=== PATIENT | female | born 1945 | race Caucasian/White ===

== ENCOUNTER 2018-10-15 11:05 | Outpatient (CLI) | payer MEDICARE ==
--- NOTE | 2018-10-18 08:51 | Mammography Report ---
Reason: ENCOUNTER FOR SCREENING MAMMOGRAM FOR MALIGNANT NE Procedure Date: 10/15/2018 Accession Number: [id number] / [id number] Procedure: LACEY - Screening Mammo w/Konstantin CPT Code: FULL RESULT: EXAM: Screening Mammo w/Konstantin DATE: 10/15/2018 11:42 AM CLINICAL HISTORY: Screening encounter. No reported risk factors. TECHNIQUE: Bilateral CC and MLO views were obtained. COMPARISON: 01/28/2011. FINDINGS: The breasts demonstrate diffuse fatty replacement bilaterally. Typically benign vascular calcifications are identified bilaterally. No suspicious masses, clustered microcalcifications, or regions of architectural distortion are identified. IMPRESSION: Benign findings RECOMMENDATION: Routine annual screening unless otherwise clinically indicated. BIRADS CATEGORY 2: Benign findings STANDARD QUALIFYING STATEMENTS: 1. This examination was not reviewed with the aid of Computer-Aided Detection (CAD). 2. A negative or benign imaging report should not preclude biopsy if clinically suspicious findings are present. 3. Dense breasts may obscure an underlying neoplasm. 4. This examination was reviewed with the aid of 3D breast imaging (tomosynthesis).
== END 2018-10-15 11:06 | disposition home or self-care (01) ==
LOC: DI 11:05
PROVIDERS: ATTEND Registered Nurse
DX: Z12.31 Encounter for screening mammogram for malignant neoplasm of breast (principal)
CPT/HCPCS: 77063; 77067

== ENCOUNTER 2019-04-07 09:12 | Outpatient (CLI) | payer MEDICARE ==
--- NOTE | 2019-04-07 11:01 | MRI Report ---
Reason: MILD COGNITIVE IMPAIRMENT,SO STATED, DISORIENTATIO Procedure Date: 04/07/2019 Accession Number: [id number] / [id number] Procedure: MRI - Brain W/O CPT Code: FULL RESULT: EXAM: MRI BRAIN WITHOUT CONTRAST EXAM DATE: 04/07/2019 10:51 AM. CLINICAL HISTORY: MILD COGNITIVE IMPAIRMENT,SO STATED, DISORIENTATION. COMPARISON: None. TECHNIQUE: Multiplanar, multisequence T1-weighted and fluid-sensitive MR sequences of the brain were performed. Sequences optimized for routine evaluation. Other: None. IV Contrast: None. Without contrast. FINDINGS: Diffusion weighted sequence shows no evidence for acute infarct. There is no mass, mass effect, midline shift or abnormal extraaxial fluid collection. Size and configuration of the ventricles are normal. Few scattered T2 hyperintensities are seen in the periventricular white matter largest in the right parietal lobe measures 6 x 9 mm. There is mild diffuse cerebral volume loss. Brainstem and cerebellum appear normal. Major intracranial flow voids appear normal. Globes, orbits, optic nerve sheath complex, optic chiasm, pituitary, cavernous sinus and Meckel's cave appear normal. Paranasal sinuses and mastoid air cells appear well aerated. Marrow signal and extracranial soft tissue appear normal. Craniocervical junction and visualized upper cervical cord appear unremarkable. IMPRESSION: 1. No acute infarct, intracranial hemorrhage, midline shift or hydrocephalus. 2. Mild diffuse nonfocal volume loss. 3. Trace scattered nonspecific white matter T2 hyperintensities bilaterally, minimal microangiopathy. Findings within normal limits given age. RADIA
== END 2019-04-07 09:13 | disposition home or self-care (01) ==
LOC: DI 09:12
PROVIDERS: ATTEND Registered Nurse
DX: G31.84 Mild cognitive impairment of uncertain or unknown etiology (principal); R41.0 Disorientation, unspecified
CPT/HCPCS: 70551

== ENCOUNTER 2021-12-13 08:48 | Outpatient (CLI) | payer MEDICARE, BC | END 2021-12-13 23:59 | disposition critical access hospital (66) | LOC: EMS 08:48 | DX: R55 Syncope and collapse (principal) | CPT/HCPCS: A0425; A0427 ==

== ENCOUNTER 2021-12-13 09:14 | Inpatient (IN) | payer MEDICARE, BC ==
--- NOTE | 2021-12-13 09:52 | ED Physician Documentation ---
History of Present Illness - Stated complaint Stated Complaint: SYNCOPAL EPISODE - Chief complaint Chief Complaint: Neuro - History obtained from History obtained from: Patient, EMS - Additonal information Additional information: 75-year-old woman with history of diabetes, recent diagnosis of dementia and looking at the chart also has hypertension and hypercholesterolemia although she is not specifically aware of these diagnoses. Some of the information from the patient is questionable as she is a poor historian due to cognitive deficits. Reportedly was feeling lightheaded for about 45 seconds, per report though was longer as she was waiting on the stairs for her daughter to pick her up. Now she feels fine. There is no associated chest pain, trouble breathing, or headache. There was no syncope. 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 - Present Medications Home Medications: Ambulatory Orders Medication Instructions Recorded Confirmed Amlodipine Besylate 5 mg PO DAILY 01/02/15 12/13/21 Glipizide [Glipizide Xl] 5 mg PO BID 01/02/15 12/13/21 Isosorbide Dinitrate 5 mg PO BID 01/02/15 12/13/21 Levocetirizine Dihydrochloride 5 mg PO QPM 01/02/15 12/13/21 Levothyroxine Sodium [Levoxyl] 125 mcg PO DAILY 01/02/15 12/13/21 Metformin HCl 500 mg PO QID 01/02/15 12/13/21 Pantoprazole [Protonix] 40 mg PO QPM 01/02/15 12/13/21 Rosuvastatin Calcium [Crestor] 10 mg PO DAILY 01/02/15 12/13/21 Triamterene/Hydrochlorothiazid 1 each PO DAILY 01/02/15 12/13/21 [Triamterene-Hctz 37.5-25 mg Cp] lisinopriL [Lisinopril] 5 mg PO QPM 01/02/15 12/13/21 - Allergies Allergies/Adverse Reactions: Allergies Allergy/AdvReac Type Severity Reaction Status Date / Time No Known Drug Allergies Allergy Verified 12/13/21 09:33 - Social History Does the pt smoke?: No Smoking Status: Never smoker Does the pt drink ETOH?: No Does the pt have substance abuse?: No - Immunizations Immunizations are current?: Yes - POLST Patient has POLST: No PD ED PE NORMAL - Vitals Vital signs reviewed: Yes - General General: No acute distress, Well developed/nourished, Other (Alert and oriented to person and place, some issues with short-term memory but is able to give a history of what happened this morning.) - HEENT HEENT: PERRL, EOMI - Neck Neck: Supple, no meningeal sign, No bony TTP - Cardiac Cardiac: RRR, No murmur - Respiratory Respiratory: No respiratory distress, Clear bilaterally - Abdomen Abdomen: Non tender - Rectal Rectal: Other (done with Sarah DURAN, dark, firm stool, not melenic but dark) - Back Back: No CVA TTP, No spinal TTP - Derm Derm: Normal color, Warm and dry - Extremities Extremities: No edema, No calf tenderness / cord - Neuro 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, No motor deficit, No sensory deficit, Normal speech Eye Opening: Spontaneous Motor: Obeys Commands Verbal: Oriented GCS Score: 15 Results - Vitals Vitals: Vital Signs - 24 hr 12/13/21 12/13/21 12/13/21 09:24 09:57 09:58 Temperature 36.1 C L Heart Rate 106 H Heart Rate [ 89 Sitting] Heart Rate [ 117 H Standing] Heart Rate [ 88 Supine] Respiratory 16 Rate Blood Pressure 112/51 L Blood Pressure 97/50 L [Sitting] Blood Pressure 91/50 L [Standing] Blood Pressure 90/50 L [Supine] O2 Saturation 100 12/13/21 11:44 Temperature Heart Rate 94 Heart Rate [ Sitting] Heart Rate [ Standing] Heart Rate [ Supine] Respiratory Rate Blood Pressure 98/50 L Blood Pressure [Sitting] Blood Pressure [Standing] Blood Pressure [Supine] O2 Saturation Oxygen O2 Source Room air - EKG (time done) 0915 Rate: Rate (enter#) (92) Rhythm: NSR [place]: Normal Intervals: Normal OK QRS: Normal Ischemia: Normal ST segments - Labs Labs: Microbiology 12/13/21 10:50 Occult Blood - Final Stool Laboratory Tests 12/13/21 12/13/21 12/13/21 09:48 09:48 09:48 WBC 11.7 H RBC 2.29 L Hgb 5.8 L* Hct 19.5 L* MCV 85.2 MCH 25.3 L MCHC 29.7 L RDW 17.7 H Plt Count 490 H MPV 9.9 Neut # (Auto) 8.7 H Lymph # (Auto) 2.0 [place] # (Auto) 0.7 Eos # (Auto) 0.2 Baso # (Auto) 0.1 Absolute Nucleated RBC 0.00 Nucleated RBC % 0.0 Sodium 134 L Potassium 4.0 Chloride 98 L Carbon Dioxide 24 Anion Gap 12.0 BUN 36 H Creatinine 1.8 H Estimated GFR (MDRD) 28 L Glucose 145 H Calcium 8.7 Iron TIBC % Saturation Transferrin Total Bilirubin 0.4 AST 16 ALT 12 Alkaline Phosphatase 50 Troponin I High Sens 4.1 Total Protein 6.6 L Albumin 3.7 Globulin 2.9 Albumin/Globulin Ratio 1.3 Blood Type Antibody Screen Crossmatch IS Only 12/13/21 12/13/21 12/13/21 09:48 10:22 10:22 WBC 11.0 H RBC 2.31 L Hgb 5.8 L* Hct 19.5 L* MCV 84.4 MCH 25.1 L MCHC 29.7 L RDW 17.5 H Plt Count 527 H MPV 9.6 Neut # (Auto) 8.5 H Lymph # (Auto) 1.8 [place] # (Auto) 0.6 Eos # (Auto) 0.1 Baso # (Auto) 0.1 Absolute Nucleated RBC 0.00 Nucleated RBC % 0.0 Sodium Potassium Chloride Carbon Dioxide Anion Gap BUN Creatinine Estimated GFR (MDRD) Glucose Calcium Iron 8 L TIBC 427 % Saturation 2 L Transferrin 305 Total Bilirubin AST ALT Alkaline Phosphatase Troponin I High Sens Total Protein Albumin Globulin Albumin/Globulin Ratio Blood Type O NEGATIVE Antibody Screen NEGATIVE Crossmatch IS Only See Detail PD MEDICAL DECISION MAKING - ED course ED course: 75-year-old woman presents after presyncopal episode. Fairly benign exam but with some low blood pressures including 90/50 here with modest tachycardia in the 110s and 1 teens. She was found to have a very low hemoglobin at 5.8, the c hronicity is unclear but at least 6 years ago had a normal hemoglobin at 12.3. She is guaiac negative here. Given the acute kidney injury with GFR of less than 50% of her prior and worried for hemodynamic instability per MCG guidelines does fit criteria for inpatient care and Dr. Barragan accepts at 11:30 AM. Departure - Departure Disposition: [facility] DC/Xfer Clinical Impression: Pre-syncope Hypotension Qualifiers: Hypotension type: unspecified hypotension type Qualified Code(s): I95.9 - Hypotension, unspecified Profound anemia Qualifiers: Anemia type: unspecified type Qualified Code(s): D64.9 - Anemia, unspecified Condition: Serious Discharge Date/Time: 12/13/21 12:50
[2021-12-13 09:53] LABS: BASOPHILS # (AUTO) 0.1 10^3/uL (0.0-0.1); BASOPHILS % (AUTO) 0.8 %; EOSINOPHILS # (AUTO) 0.2 10^3/uL (0.0-0.7); EOSINOPHILS % (AUTO) 1.4 %; LYMPHOCYTES % (AUTO) 17.2 %; MEAN CORPUSCULAR HEMOGLOBIN 25.3 pg (27.0-31.0); MEAN CORPUSCULAR HGB CONC 29.7 g/dL (32.0-36.0); MEAN CORPUSCULAR VOLUME 85.2 fL (81.0-99.0); MEAN PLATELET VOLUME 9.9 fL (7.9-10.8); MONOCYTES # (AUTO) 0.7 10^3/uL (0.0-1.0); MONOCYTES % (AUTO) 6.1 %; NEUTROPHILS # (AUTO) 8.7 10^3/uL (1.5-6.6); NEUTROPHILS % (AUTO) 74.2 %; PLT - PLATELET COUNT 490 10^3/uL (130-450); RED BLOOD COUNT 2.29 10^6/uL (4.20-5.40); RED CELL DISTRIBUTION WIDTH 17.7 % (12.0-15.0); WHITE BLOOD COUNT 11.7 x10^3/uL (4.8-10.8)
[2021-12-13 09:59] LABS: HCT - HEMATOCRIT 19.5 % (37.0-47.0); HGB - HEMOGLOBIN 5.8 g/dL (12.0-16.0)
[2021-12-13 10:06] LABS: ALBUMIN 3.7 g/dL (3.2-5.5); ALBUMIN/GLOBULIN RATIO 1.3 (1.0-2.2); BILIRUBIN,TOTAL 0.4 mg/dL (0.2-1.0); CALCIUM 8.7 mg/dL (8.5-10.3); CREATININE 1.8 mg/dL (0.4-1.0); TOTAL PROTEIN 6.6 g/dL (6.7-8.2)
[2021-12-13 10:29] LABS: BASOPHILS # (AUTO) 0.1 10^3/uL (0.0-0.1); BASOPHILS % (AUTO) 0.6 %; EOSINOPHILS # (AUTO) 0.1 10^3/uL (0.0-0.7); EOSINOPHILS % (AUTO) 0.8 %; LYMPHOCYTES # (AUTO) 1.8 10^3/uL (1.5-3.5); LYMPHOCYTES % (AUTO) 15.9 %; MEAN CORPUSCULAR HEMOGLOBIN 25.1 pg (27.0-31.0); MEAN CORPUSCULAR HGB CONC 29.7 g/dL (32.0-36.0); MEAN CORPUSCULAR VOLUME 84.4 fL (81.0-99.0); MEAN PLATELET VOLUME 9.6 fL (7.9-10.8); MONOCYTES # (AUTO) 0.6 10^3/uL (0.0-1.0); NEUTROPHILS # (AUTO) 8.5 10^3/uL (1.5-6.6); NEUTROPHILS % (AUTO) 77.3 %; PLT - PLATELET COUNT 527 10^3/uL (130-450); RED BLOOD COUNT 2.31 10^6/uL (4.20-5.40); RED CELL DISTRIBUTION WIDTH 17.5 % (12.0-15.0)
[2021-12-13 10:34] LABS: HCT - HEMATOCRIT 19.5 % (37.0-47.0); HGB - HEMOGLOBIN 5.8 g/dL (12.0-16.0)
[2021-12-13] MEDS ORDERED: ONDANSETRON 4 MG/2 ML VIAL IVP PRN (11:52)
[2021-12-13] MEDS ORDERED: ACETAMINOPHEN 325 MG TABLET PO PRN (11:52)
[2021-12-13] MEDS ORDERED: SODIUM CHLORIDE FLUSH 0.9% 10 ML SYRINGE IVP PRN (11:52)
[2021-12-13 12:25] LABS: % IRON SATURATION 2 % (20-50); IRON 8 ug/dL (28-170); TOTAL IRON BINDING CAPACITY 427 ug/dL (250-450); TRANSFERRIN 305 mg/dL (192-382)
--- NOTE | 2021-12-13 13:05 | HISTORY & PHYSICAL EXAMINATION ---
Chief Complaint - Chief Complaint Chief Complaint: Dizziness and near syncope <Sherry Tate - Last Filed: 12/13/21 18:55> History of Present Illness - Admitted From Admitted From:: [facility] ED - History Obtained From History obtained from: Patient and Medical Records Exam Limitations: Patient if forgetful <Sherry Tate - Last Filed: 12/13/21 18:55> - History of Present Illness HPI Comment/Other: The patient is a pleasant well nourished 75 year old female with a history of hypertension, hyperlipidemia, diabetes, and hypothyroidism. She presents to the hospital ED from home after near syncope. She reports being home alone standing on the stairs and began to feel dizzy. She felt that she was going to lose her balance so sat down on the stairs. She denies losing consciences, falling, or injury. She then proceeded to call her daughter, Stephanie who called paramedics. She reports a similar episode of dizziness several years ago but denies having a medial work up. During initial work up she was found to be severely anemic with Hgb & Hct 5.8/19.5 and was orthostatic heart rate ranged 88 supine to 117 standing and blood pressure was 90s/50. Patient denies dizziness with recent activity. She reports normal bowel color, consistency, with last bowel movement 12/12/21. She d enies recent abdominal pain, vomiting, or bloody/ black stools. No recent illness or infection. She denies any recent trauma. Daughter Stephanie was contacted who reported that she was with patient during near syncopal episode. She had picked her up from her apartment on the second story and as they were walking down the stairs she reported feeling dizzy and hot so she abruptly sat down. She was then lethargic with some facial twitching that continued until paramedics arrived. When she tried to stand up, she began to feel dizzy again and was orthostatic. Daughter reports patient has been complai zulema of increased weakness, fatigue, and dyspepsia over 2 weeks. 3 weeks prior to admission patient was having diarrhea for a 2 week period that kept her from leaving the apartment. It has resolved 1 week ago. The patient is now complaining of constipation but reported a bowel movement yesterday. She did have an esophogeal bleed in 2006 that was managed without intervention. Daughter does not recall patient complaining of chest pain recently or in the past and in unsure why she takes Isosorbide. She does not know of any cardiac conditions other than hypertension. Daughter confirmed that patient is still driving but has plans to move to [facility] in 2 weeks. Code status was discussed with the daughter and she confirmed that patient would like full resuscitation. 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 - Substance History Use: Uses substance without health or social issues: NONE Abuse: Recurrent use of substance despite neg consequences: NONE Dependence: Experiences withdrawal or developed tolerances: NONE - POLST Patient has POLST: No POLST Status: Full Code (Confirmed with daughter, Stephanie) <Sherry Tate - Last Filed: 12/13/21 18:55> Meds/Allgy <Shrery Tate - Last Filed: 12/13/21 18:55> <Darling Barragan - Last Filed: 12/13/21 19:32> - Home Medications Home Medications: Ambulatory Orders Medication Instructions Recorded Confirmed Amlodipine Besylate 5 mg PO DAILY 01/02/15 12/13/21 Glipizide [Glipizide Xl] 5 mg PO BID 01/02/15 12/13/21 Isosorbide Dinitrate 5 mg PO BID 01/02/15 12/13/21 Levocetirizine Dihydrochloride 5 mg PO QPM 01/02/15 12/13/21 Levothyroxine Sodium [Levoxyl] 125 mcg PO DAILY 01/02/15 12/13/21 Metformin HCl 500 mg PO QID 01/02/15 12/13/21 Pantoprazole [Protonix] 40 mg PO QPM 01/02/15 12/13/21 Rosuvastatin Calcium [Crestor] 10 mg PO DAILY 01/02/15 12/13/21 Triamterene/Hydrochlorothiazid 1 each PO DAILY 01/02/15 12/13/21 [Triamterene-Hctz 37.5-25 mg Cp] lisinopriL [Lisinopril] 5 mg PO QPM 01/02/15 12/13/21 - Allergies Allergies/Adverse Reactions: Allergies Allergy/AdvReac Type Severity Reaction Status Date / Time No Known Drug Allergies Allergy Verified 12/13/21 09:33 Review of Systems - Constitutional Constitutional: reports: Fatigue, Weakness. denies: Fever, Chills, Malaise - Eyes Eyes: denies: Pain, Irritation, Blurred vision - Ears, Nose & Throat Ears, Nose & Throat: reports: Hearing loss, Hearing aids. denies: Tinnitus, Vertigo, Nasal discharge, Nasal congestion - Cardiovascular Cariovascular: reports: Lightheadedness. denies: Irregular heart rate, Palpitations, Chest pain, Edema - Respiratory Respiratory: denies: Cough, Sputum production, Wheezing, Hemoptysis - Gastrointestinal Gastrointestinal: reports: Constipation (Intermittent), Change in bowel habits (Diarrhea for 2 weeks then 1 week of constipation. Last BM 12/12/21). denies: Abdominal pain, Diarrhea, Rectal bleeding, Black stools, Bloody stools, Nausea, Vomiting, Hiren blood emesis, Coffee grounds emesis - Genitourinary Genitourinary: denies: Dysuria, Frequency, Urgency, Hematuria - Musculoskeletal Musculoskeletal: denies: Muscle pain, Joint swelling - Integumentary Integumentary: denies: Rash, Lesions, Pigment changes - Neurological Neurological: reports: General weakness, Dizziness. denies: Headache, Numbness - Psychiatric Psychiatric: denies: Depression, Anxiety - Endocrine Endocrine: denies: Polyuria, Polydypsia, Intolerance to cold, Intolerance to heat - Hematologic/Lymphatic Hematologic/Lymphatic: denies: Anemia, Bruising, Petechiae <Sherry Tate - Last Filed: 12/13/21 18:55> <Sherry Tate - Last Filed: 12/13/21 18:55> Prior Level of Functionality: Patient reports living alone and independently preforming activities of daily living. She is able to drive to the store and prepare her own meals. No ambulation assistance devices. (Lea,Sherry) Exam - Vital Signs Reviewed Vital Signs: Yes - Physical Exam General Appearance: positive: No acute distress, Alert Eyes Bilateral: positive: Normal inspection, PERRL, EOMI ENT: positive: ENT inspection nml, Pharynx nml, No signs of dehydration Respiratory: positive: Chest non-tender, No respiratory distress, Breath sounds nml Cardiovascular: positive: Regular rate & rhythm, No murmur Peripheral Pulses: positive: 2+ Abdomen: positive: Non-tender, No organomegaly, Nml bowel sounds, No distention Back: positive: Nml inspection Skin: positive: Color nml, No rash, Warm, Dry Extremities: positive: Non-tender, Full ROM, No pedal edema Neurologic/Psychiatric: positive: CN's nml (2-12), Motor nml, Sensation nml, Mood/affect nml, Disoriented to time, Other (During exam patient is forgetful to short term history and medical details.) <Minal Tatearina - Last Filed: 12/13/21 18:55> - Vital Signs Vital Signs: Vital Signs x48h Temp Pulse Pulse Pulse Resp BP BP 12/13/21 18:23 36.8 C 84 16 100/44 L 12/13/21 16:15 37.3 C 83 16 87/67 L 12/13/21 15:13 78 C H 87 16 95/45 L 12/13/21 15:06 36.9 C 84 16 93/44 L 12/13/21 13:00 36.8 C 80 18 105/50 L 12/13/21 12:21 82 20 95/49 L 12/13/21 11:44 94 98/50 L Pulse Ox 12/13/21 18:23 12/13/21 16:15 100 12/13/21 15:13 12/13/21 15:06 12/13/21 13:00 100 12/13/21 12:21 100 12/13/21 11:44 Conclusion/Plan - Problem List (1) Severe anemia Conclusion/Plan: Patient admitted today 12/13/21 after near syncope. She reported feeling dizzy and felt like she was going to loose her balance so she sat down on her stairs. Initial workup revealed a severe anemia with Hgb 5.8 and Hct 19.5. A repeat H&H was done 30 minutes later to confirm results. MCV is 84.4 and RDW is 17.5. Patient denies changes to bowel pattern, consistency, or color. Occult stool was negative. Daughter reports that patient had esophageal bleed in 2006 that led to hospitalization. She has also been complaiing of increased fatigue, weakness, and dyspepsia for 2 weeks. 3 weeks ago she had 2 weeks of diarrhea that ended 1 week ago. She denies recent illness or emesis. Iron 8, TIBC 427. Medications were reviewed and are unlikely the cause of her anemia. Plan: Transfuse 2 units of packed red blood cells. Obtain TSH to rule out hypothyroid cause of anemia. Obtain B12 and Folate level to rule out vitamin deficiency cause of anemia. Monitor CBC. Consider bone marrow sample to rule out myelodysplasia if anemia cause remains undetermined. (2) Acute kidney injury Conclusion/Plan: Patient was admitted today 12/13/21, with near syncope and severe anemia. Her admission Hgb is 5.8 and Hct 19.5. She does NOT have a history of kidney disease. Her initial Creatinine is 1.8 compared to creatinine 0.9 on 01/09/2016 admission and GFR is down to 28 from 62 on last 12/11/2015 admission. Acute kidney injury is most likely due to hypovolemia. Plan: Start IV fluids of normal saline at 83.3mls/ hour. Transfuse 2 units of Packed red blood cells. Monitor BMP and CBC daily. (3) Orthostasis Conclusion/Plan: Patient was admitted today for near syncope. According to the machine lead burner run sheet her blood pressure was 110/53 with a heart rate of 102. When she proceeded to stand, her blood pressure dropped to 89/41. In the ED she had orthostatics with a supine, sitting, and standing blood pressure of 90/50 >> 97/50 >> 91/50 and a heart rate of 88 >> 89 >> 117 standing. These findings are consistent with orthostasis. Plan: Hold hypertension medications while inpatient. Continue to monitor blood pressure. Repeat orthostatics when anemia improves. (4) Hypertension Conclusion/Plan: Patient has a history of hypertension and is on Amlodipine 5mg PO daily, Lisinopril 5mg PO nightly, and Triamterene HTZ 37.5/25 po daily at home. Upon admission to the hospital she was hypotensive with systolic blood pressure 90s. Although the patient has dementia and limited short term memory, the daughter believe the patient is taking medication as prescribed because she has not had to fill them early and the patient has been taking the medication the same way for 10 years. Plan: Hold hypertension medication while hypotensive. Will consider resume/ adjusting hypertension medication as blood pressure stabilizes. (5) Hypothyroid Conclusion/Plan: Patient has a history of hypothyroidism and is taking levothyroxine 125mg PO daily. She reports compliance and denies cold intolerance or weight changes. Upon admission Hgb 5.8. Plan: Obtain TSH to evaluate effective levothyroxine dose and rule out hypothyroid cause of anemia. Resume Levothyroxine 125mg PO daily after labs. (6) Diabetes Conclusion/Plan: Patient has a history of type II diabetes. She is currently on Metformin 500mg PO daily and Glipizide XL 5mg PO twice daily. She reports compliance with mediations. Admission glucose was 145. Plan: Hold PO diabetes mediation while inpatient. Begin monitoring glucose AC and HS with sliding scale insulin coverage. Obtain A1c to evaluate glucose control. (7) Dementia Conclusion/Plan: Patient has a history of dementia according to the daughter. She has a short term memory deficient but continues to live alone in her apartment where she independently preform activities of daily living, including driving. She has plans to move to [facility] in 2 weeks. Discussed driving safety concern with daughter Stephanie who is also concerned with patient safety and is planning to discourage patient from driving. Upon admission she is alert to self, situation, and location. She knows the year but can't recall the month. She is able to discuss limited details of admission. Plan: Continue to reorient patient as needed. Allow daughter to visit with patient during hospitalization. Complete DMV form to no longer allow driving. - Lab Results Fish Bones: 12/13/21 10:22 12/13/21 09:48 <Sherry Tate - Last Filed: 12/13/21 18:55> - Lab Results Fish Bones: 12/13/21 10:22 12/13/21 09:48 <Darling Barragan - Last Filed: 12/13/21 19:32> - Other Other Results/Comments: Attestation: The patient is expected to be discharged or transferred to another facility within 96 hours: YES (Sherry Tate) Core Measures - Anticipated LOS I expect patient to be DC'd or transferred within 96 hours.: Yes - DVT/VTE - Prophylaxis VTE/DVT Device ordered at admit?: Yes VTE/DVT Prophylaxis med ordered at admit?: No <Sherry Tate - Last Filed: 12/13/21 18:55>
[2021-12-13] MEDS: INSULIN ASPART 300 UNIT/3 ML PEN SUBQ SCH ×2 (16:47→20:58)
[2021-12-13] MEDS: SODIUM CHLORIDE FLUSH 0.9% 10 ML SYRINGE IVP SCH (16:47)
[2021-12-13] MEDS: SODIUM CHLORIDE 0.9% 1,000 ML IV SCH (18:24)
[2021-12-13] MEDS ORDERED: CALCIUM CARBONATE CHEW 500 MG TABLET PO PRN (23:50)
[2021-12-14] MEDS: SODIUM CHLORIDE FLUSH 0.9% 10 ML SYRINGE IVP SCH ×3 (00:08→16:16)
[2021-12-14 05:15] LABS: HCT - HEMATOCRIT 22.6 % (37.0-47.0); MEAN CORPUSCULAR HGB CONC 30.5 g/dL (32.0-36.0); MEAN CORPUSCULAR VOLUME 85.3 fL (81.0-99.0); MEAN PLATELET VOLUME 9.6 fL (7.9-10.8); RED BLOOD COUNT 2.65 10^6/uL (4.20-5.40); RED CELL DISTRIBUTION WIDTH 17.2 % (12.0-15.0); WHITE BLOOD COUNT 9.1 x10^3/uL (4.8-10.8)
[2021-12-14 05:17] LABS: HGB - HEMOGLOBIN 6.9 g/dL (12.0-16.0)
[2021-12-14] MEDS: SODIUM CHLORIDE 0.9% 1,000 ML IV SCH ×2 (05:25→22:31)
[2021-12-14 05:28] LABS: CALCIUM 8.8 mg/dL (8.5-10.3); CREATININE 1.4 mg/dL (0.4-1.0); MAGNESIUM 1.9 mg/dL (1.7-2.8); PHOSPHORUS 3.5 mg/dL (2.5-4.6); POTASSIUM 3.9 mmol/L (3.5-5.0)
[2021-12-14] MEDS: INSULIN ASPART 300 UNIT/3 ML PEN SUBQ SCH ×4 (08:22→21:33)
[2021-12-14] MEDS: polyethylene glycoL 3350 17 GM PACKET PO SCH (08:45)
[2021-12-14 08:50] LABS: ESTIMATED AVERAGE GLUCOSE 151 mg/dL (70-100); HEMOGLOBIN A1c% 6.9 % (4.27-6.07)
[2021-12-14 08:56] LABS: THYROID STIMULATING HORMONE 1.91 uIU/mL (0.34-5.60)
[2021-12-14 09:07] LABS: FOLATE 12.86 ng/mL (5.90 - >24.8)
[2021-12-14] MEDS: FERROUS SULFATE 325 MG TABLET PO SCH ×2 (09:58→17:01)
--- NOTE | 2021-12-14 10:32 | PROVIDER PROGRESS NOTE ---
Assessment/Plan - Problem List (1) Severe anemia Assessment/Plan: Patient admitted on 12/13/21 after a syncopal episode. According to the daughter (Stephanie) the patient felt dizzy after walking down stairs and felt like shewas going to loose her balance so she abruptly sat down. Initial workup revealed a severe anemia with Hgb 5.8 and Hct 19.5 along with MCV 84.4 and RDW 17.5. Patient has a history of GI bleed due to esophageal varices in 2006. The daughter reports that patient had diarrhea for 2 weeks that had resolved for 1 week prior to admission. Occult stool in ED was negative. According to the gal ghter, in the weeks prior to hospitalization, the patient was complaining of increased fatigue, weakness, and dyspepsia for 2 weeks. She denies recent illness or emesis. Iron 8, TIBC 427. Medications were reviewed and are unlikely the cause of her anemia. Hypothyrodism is unlikely the cause of anemia due to TSH 1.9. Vitamin deficiency is unlikely the cause of anemia due to serum B12 350 and Folate 12.86. Spoke with daughter (Stephanie) today who reported last GI bleed episode in 2006 from esophageal varcies was due to esophageal erosion and not alcohol consumption. The two weeks of pre-hospital diarrhea is most likely due to a recent GI bleed. Today her Hgb is improved but remains lower at 6.9. Plan: Transfuse additional 1 unit of packed red blood cells. Start Protonix twice daily for presumed recent GI bleed. Start Ferrous 324mg PO twice daily for iron deficiency. Monitor CBC. Consider bone marrow sample to rule out myelodysplasia if anemia cause remains undetermined after discharge. (2) Acute kidney injury Assessment/Plan: Patient was admitted on 12/13/21, with syncope and severe anemia. Her admission Hgb was 5.8 and Hct 19.5. She does NOT have a history of kidney disease. Her initial Creatinine was 1.8 compared to creatinine 0.9 on 01/09/2016 and GFR was down to 28 from 62 on 01/09/2016. Today her kidney function is improving with her creatinine 1.4, BUN 29, and GFR 37. Acute kidney injury is most likely due to hypovolemia. Plan: Continue IV fluids of normal saline at 83.3mls/ hour. Transfuse additional 1 unit of Packed red blood cells. Monitor BMP and CBC. (3) Orthostasis Assessment/Plan: Patient was admitted on 12/13/21 for syncope. According to the travel coordinator run sheet her blood pressure was 110/53 with a heart rate of 102. When she proceeded to stand, her blood pressure dropped to 89/41. In the ED she had orthostatasis with a supine, sitting, and standing blood pressure of 90/50 >> 97/50 >> 91/50 and a heart rate of 88 >> 89 >> 117 standing. These findings are consistent with orthostasis. Today she continues to have low blood pressures 86/38 >> 106/54 >> 104/55. She was able ambulated to the bathroom with stand by assistance and denied dizziness. Plan: Hold hypertension medications while hypotensive. Continue to monitor blood pressure. (4) Paroxysmal SVT (supraventricular tachycardia) Assessment/Plan: Today patient had 13 beat run of paroxysmal supraventricular tachycardia. Patient was unaware of arrhythmia and denied chest pain, dyspnea, or dizziness. Potassium is 3.9 and magnesium is 1.9. Cardiac echo from 12/13/21 showed "EF to 70% with grade I diastolic dysfunction. Left atrium is mildly increased, right atrium is normal. Trace mitral and tricuspid regurgitation". Patient had Imdur listed on home medications but is unsure as to why she takes it. This was discussed with the daughter on 12/13/21 who was also unsure of past cardiac history. SVT may be coronary in origin. Plan: Continue to with telemetry monitoring. Monitor electrolytes and treat deficiencies. (5) Hypothyroid Assessment/Plan: Patient has a history of hypothyroidism and is taking levothyroxine 125mg PO daily. She reports compliance and denies cold intolerance or weight changes. Upon admission Hgb 5.8. TSH today is 1.9 and unlikely the cause of anemia. Plan: Resume Levothyroxine 125mg PO daily today. (6) Diabetes Assessment/Plan: Patient has a history of type II diabetes. She is currently on Metformin 500mg PO daily and Glipizide XL 5mg PO twice daily. She reports compliance with mediations. Admission glucose was 145 and A1c was 6.9 which within range according ADA 2021 T2DM Care Guidelines. Plan: Continue to hold Metformin while inpatient due to mediation interaction potenital. Resume home Glimepiride at lower dose of 4mg PO daily vesus 8mg due to lower morning glucose of 95. Continue monitoring glucose AC and HS with sliding scale insulin coverage. (7) Dementia Assessment/Plan: Patient has a history of dementia according to the daughter. She has a short term memory deficient but continues to live alone in her apartment where she independently preform activities of daily living, including driving. She has plans to move to [facility] in 2 weeks. Discussed driving safety concern with daughter Stephanie on 12/13/21 who is also concerned with patient safety and is planning to discourage patient from driving. She is alert to self, situation, and location. She knows the year but can't recall the month. Plan: Continue to reorient patient as needed. Allow daughter to visit with patient during hospitalization. Resume home medications, Memantine 5mg PO nightly and Donepezil 10mg PO nightly. Complete DMV form to no longer allow driving. (8) History of hypertension Assessment/Plan: Patient has a history of hypertension and takes Amlodipine 5mg PO daily, Lisinopril 5mg PO nightly, and Triamterene HTZ 37.5/25 po daily at home. Upon admission to the hospital she was hypotensive with systolic blood pressure 90s. Although the patient has dementia and limited short term memory, the daughter believe the patient is taking medication as prescribed because she has not had to fill them early and the patient has been taking the medication the same way for 10 years. Plan: Continue to hold hypertension medication while hypotensive. Consider resuming/ adjusting hypertension medication as blood pressure stabilizes. - Current Meds Current Meds: Current Medications Generic Name Dose Route Start Last Admin Trade Name Antwon PRN Reason Stop Dose Admin Calcium Carbonate/Glycine 500 mg 12/13/21 23:50 12/14/21 00:07 Calcium Carbonate Chew 500 Mg Tablet PO 500 mg TID PRN Administration Heartburn Ferrous Sulfate 325 mg 12/14/21 10:00 12/14/21 09:58 Ferrous Sulfate 325 Mg Tablet PO 325 mg BIDWM ASHLEY Administration Sodium Chloride 1,000 mls @ 83.33 mls/hr 12/13/21 12:00 12/14/21 05:25 Normal Saline 0.9% IV 83.33 mls/hr .Q12H1M ASHLEY Administration Insulin Aspart 1 - 5 unit 12/13/21 17:00 12/14/21 08:22 Insulin Aspart 300 Unit/3 Ml Pen SUBQ Not Given 0800,1200,1700,2100 [facility] Protocol Polyethylene Glycol 17 gm 12/14/21 09:00 12/14/21 08:45 Polyethylene Glycol 3350 17 Gm Packet PO 17 gm DAILY ASHLEY Administration Sodium Chloride 10 ml 12/13/21 17:00 12/14/21 08:43 Sodium Chloride Flush 0.9% 10 Ml Syringe IVP Not Given 0100,0900,1700 [facility] - Lab Result Fish Bone Diagrams: 12/14/21 04:22 12/14/21 04:22 Subjective - Subjective Patient Reports: Feeling Better, Resting Comfortably, No Complaints (Patient is resting comfortably in bed. Reports ambulating to the bathroom without d izziness.) Nursing Reports: No Complaints (Patient was able to ambulate independently to bathroom without dizziness.) Objective Vital Signs: Vital Signs - 24 hr 12/13/21 12/13/21 12/13/21 11:44 12:21 13:00 Temperature 36.8 C Heart Rate 94 82 Heart Rate [ Brachial] Heart Rate [ 80 Monitoring electrodes] Heart Rate [ Radial] Respiratory 20 18 Rate Blood Pressure 98/50 L 95/49 L Blood Pressure [Left Radial artery] Blood Pressure 105/50 L [Right Brachial artery] O2 Saturation 100 100 12/13/21 12/13/21 12/13/21 15:06 15:13 16:15 Temperature 36.9 C 78 C H 37.3 C Heart Rate 84 87 Heart Rate [ 83 Brachial] Heart Rate [ Monitoring electrodes] Heart Rate [ Radial] Respiratory 16 16 16 Rate Blood Pressure 93/44 L 95/45 L Blood Pressure [Left Radial artery] Blood Pressure 87/67 L [Right Brachial artery] O2 Saturation 100 12/13/21 12/13/21 12/14/21 18:23 21:00 00:03 Temperature 36.8 C 37.0 C 37.1 C Heart Rate 84 Heart Rate [ 57 L 87 Brachial] Heart Rate [ Monitoring electrodes] Heart Rate [ Radial] Respiratory 16 14 16 Rate Blood Pressure 100/44 L Blood Pressure [Left Radial artery] Blood Pressure 96/49 L 123/54 L [Right Brachial artery] O2 Saturation 92 99 12/14/21 12/14/21 05:38 07:36 Temperature 36.6 C 36.8 C Heart Rate Heart Rate [ 82 Brachial] Heart Rate [ Monitoring electrodes] Heart Rate [ 86 Radial] Respiratory 16 16 Rate Blood Pressure Blood Pressure 86/38 L [Left Radial artery] Blood Pressure 106/54 L [Right Brachial artery] O2 Saturation 100 97 Oxygen O2 Source Room air I&O (Last 24 Hrs): Intake and Output Totals x24h 12/12/21 12/13/21 12/14/21 23:59 23:59 23:59 Intake Total 1135 1443.019 Balance 1135 1443.019 General: Alert, Cooperative, No acute distress HEENT: Atraumatic Neuro: Alert, Other (Alert to self, location, and year. Confused about situation with short term memory deficit.) Cardiovascular: Regular rate, No murmurs Respiratory: Chest non-tender, No respiratory distress, Breath sounds nml Abdomen: Normal bowel sounds, Soft, No tenderness Extremities: No edema, Normal pulses, No tenderness/swelling Skin: No rashes - Results Results: Laboratory Results WBC 9.1 x10^3/uL (4.8-10.8) 12/14/21 04:22 RBC 2.65 10^6/uL (4.20-5.40) L 12/14/21 04:22 Hgb 6.9 g/dL (12.0-16.0) L* 12/14/21 04:22 Hct 22.6 % (37.0-47.0) L 12/14/21 04:22 MCV 85.3 fL (81.0-99.0) 12/14/21 04:22 MCH 26.0 pg (27.0-31.0) L 12/14/21 04:22 MCHC 30.5 g/dL (32.0-36.0) L 12/14/21 04:22 RDW 17.2 % (12.0-15.0) H 12/14/21 04:22 Plt Count 450 10^3/uL (130-450) 12/14/21 04:22 MPV 9.6 fL (7.9-10.8) 12/14/21 04:22 Neut # (Auto) 8.5 10^3/uL (1.5-6.6) H 12/13/21 10:22 Lymph # (Auto) 1.8 10^3/uL (1.5-3.5) 12/13/21 10:22 [place] # (Auto) 0.6 10^3/uL (0.0-1.0) 12/13/21 10:22 Eos # (Auto) 0.1 10^3/uL (0.0-0.7) 12/13/21 10:22 Baso # (Auto) 0.1 10^3/uL (0.0-0.1) 12/13/21 10:22 Absolute Nucleated RBC 0.00 x10^3/uL 12/13/21 10:22 Nucleated RBC % 0.0 /100WBC 12/13/21 10:22 Sodium 135 mmol/L (135-145) 12/14/21 04:22 Potassium 3.9 mmol/L (3.5-5.0) 12/14/21 04:22 Chloride 101 mmol/L (101-111) 12/14/21 04:22 Carbon Dioxide 25 mmol/L (21-32) 12/14/21 04:22 Anion Gap 9.0 (6-13) 12/14/21 04:22 BUN 29 mg/dL (6-20) H 12/14/21 04:22 Creatinine 1.4 mg/dL (0.4-1.0) H 12/14/21 04:22 Estimated GFR (MDRD) 37 (>89) L 12/14/21 04:22 Glucose 95 mg/dL (70-100) 12/14/21 04:22 Estimat Average Glucose 151 mg/dL (70-100) H 12/14/21 04:22 Hemoglobin A1c % 6.9 % (4.27-6.07) H 12/14/21 04:22 Calcium 8.8 mg/dL (8.5-10.3) 12/14/21 04:22 Phosphorus 3.5 mg/dL (2.5-4.6) 12/14/21 04:22 Magnesium 1.9 mg/dL (1.7-2.8) 12/14/21 04:22 Iron 8 ug/dL (28-170) L 12/13/21 09:48 TIBC 427 ug/dL (250-450) 12/13/21 09:48 % Saturation 2 % (20-50) L 12/13/21 09:48 Transferrin 305 mg/dL (192-382) 12/13/21 09:48 Total Bilirubin 0.4 mg/dL (0.2-1.0) 12/13/21 09:48 AST 16 IU/L (10-42) 12/13/21 09:48 ALT 12 IU/L (10-60) 12/13/21 09:48 Alkaline Phosphatase 50 IU/L (42-121) 12/13/21 09:48 Troponin I High Sens 4.1 ng/L (2.3-14.8) 12/13/21 09:48 Total Protein 6.6 g/dL (6.7-8.2) L 12/13/21 09:48 Albumin 3.7 g/dL (3.2-5.5) 12/13/21 09:48 Globulin 2.9 g/dL (2.1-4.2) 12/13/21 09:48 Albumin/Globulin Ratio 1.3 (1.0-2.2) 12/13/21 09:48 Vitamin B12 350 pg/mL (180-914) 12/14/21 04:22 Folate 12.86 ng/mL (5.90 - >24.8) 12/14/21 04:22 TSH 1.91 uIU/mL (0.34-5.60) 12/14/21 04:22 SARS-CoV-2 (PCR) NOT DETECTED 12/13/21 12:00 Blood Type O NEGATIVE 12/13/21 10:22 Antibody Screen NEGATIVE 12/13/21 10:22 Crossmatch IS Only See Detail 12/13/21 10:22 Sepsis Event Note (H) - Evaluation Current Stage of Sepsis: Ruled out ABX Reporting Has patient been on IV antibiotics over the past 48 hours?: No
[2021-12-14 17:15] LABS: HCT - HEMATOCRIT 26.4 % (37.0-47.0); HGB - HEMOGLOBIN 8.4 g/dL (12.0-16.0)
[2021-12-14] MEDS: PANTOPRAZOLE 40 MG TABLET PO SCH (21:32)
[2021-12-14] MEDS: MEMANTINE 5 MG TABLET PO SCH (21:32)
[2021-12-14] MEDS: DONEPEZIL 5 MG TABLET PO SCH (21:33)
[2021-12-14] MEDS: ATORVASTATIN 10 MG TABLET PO SCH (21:33)
[2021-12-15] MEDS: SODIUM CHLORIDE FLUSH 0.9% 10 ML SYRINGE IVP SCH ×3 (00:01→16:57)
[2021-12-15 05:09] LABS: HCT - HEMATOCRIT 25.2 % (37.0-47.0); HGB - HEMOGLOBIN 7.9 g/dL (12.0-16.0); MEAN CORPUSCULAR HEMOGLOBIN 26.3 pg (27.0-31.0); MEAN CORPUSCULAR HGB CONC 31.3 g/dL (32.0-36.0); MEAN PLATELET VOLUME 9.5 fL (7.9-10.8); RED CELL DISTRIBUTION WIDTH 16.3 % (12.0-15.0); WHITE BLOOD COUNT 8.6 x10^3/uL (4.8-10.8)
[2021-12-15 05:19] LABS: CALCIUM 8.6 mg/dL (8.5-10.3); CREATININE 1.1 mg/dL (0.4-1.0); POTASSIUM 3.5 mmol/L (3.5-5.0)
[2021-12-15] MEDS: LEVOTHYROXINE 125 MCG TABLET PO SCH (06:02)
[2021-12-15] MEDS: GLIMEPIRIDE 2 MG TABLET PO SCH (07:46)
[2021-12-15] MEDS: FERROUS SULFATE 325 MG TABLET PO SCH ×2 (07:47→16:57)
[2021-12-15] MEDS: INSULIN ASPART 300 UNIT/3 ML PEN SUBQ SCH ×4 (07:49→21:02)
--- NOTE | 2021-12-15 08:37 | PROVIDER PROGRESS NOTE ---
Assessment/Plan - Problem List (1) Severe anemia Assessment/Plan: Patient admitted on 12/13/21 after a syncopal episode. According to the daughter (Stephanie) the patient felt dizzy after walking down stairs and felt like she was going to loose her balance so she abruptly sat down. Initial workup revealed a severe anemia with Hgb 5.8 and Hct 19.5 along with MCV 84.4 and RDW 17.5. Patient has a history of GI bleed due to esophageal varices in 2006 that according to the daughter (Stephanie) was due to esophageal erosion and not alcohol consumption. The daughter reports that patient had diarrhea for 2 weeks that had resolved for 1 week prior to admission. Occult stool in ED was negative. According to the daughter, in the weeks prior to hospitalization, the patient was complaining of increased fatigue, weakness, and dyspepsia for 2 weeks. She denies recent illness or emesis. Iron 8, TIBC 427. Medications were reviewed and are unlikely the cause of her anemia. Hypothyrodism is unlikely the cause of anemia due to TSH 1.9. Vitamin deficiency is unlikely the cause of anemia due to serum B12 350 and Folate 12.86. The two weeks of pre-hospital diarrhea is most likely due to a recent GI bleed. She has received a total of 3 units of PRBCs since admission. Today her Hgb is improved but remains lower at 7.9. Plan: Continue Ferrous 324mg PO twice daily for iron deficiency. Continue Protonix 40mg PO twice daily empirically for presumed recent GI bleeding for 1 month. Monitor CBC. Consider bone marrow sample to rule out myelodysplasia if anemia cause remains undetermined after discharge. (2) Acute kidney injury Assessment/Plan: Patient was admitted on 12/13/21, with syncope and severe anemia. Her admission Hgb was 5.8 and Hct 19.5. She does NOT have a history of kidney disease. Her initial Creatinine was 1.8 compared to creatinine 0.9 on 01/09/2016 and GFR was down to 28 from 62 on 01/09/2016. Today her kidney function continues to improve with her creatinine 1.1, BUN 17, and GFR 49. Acute kidney injury is most likely due to hypovolemia. Plan: Discontinue IV fluids since patient is taking good oral fluids. Monitor BMP and CBC. (3) Orthostasis Assessment/Plan: Patient was admitted on 12/13/21 for syncope. According to the supervisor steel division run sheet her blood pressure was 110/53 with a heart rate of 102. When she proceeded to stand, her blood pressure dropped to 89/41. In the ED she had orthostasis with a supine, sitting, and standing blood pressure of 90/50 >> 97/50 >> 91/50 and a heart rate of 88 >> 89 >> 117 standing. These findings were consistent with orthostasis. Today her systolic blood pressures are [id number]. Her orthostatics were 117/56 >> 129/70>> 138/62 and heart rates 80>> 84>> 91. She was able ambulate in the halls and denied dizziness. Plan: Hold hypertension medications while hypotensive. Continue to monitor blood pressure. (4) Paroxysmal SVT (supraventricular tachycardia) Assessment/Plan: Yesterday on 12/14/2021 the patient had a 13 beat run of paroxysmal supraventricular tachycardia. Patient was unaware of arrhythmia and denied chest pain, dyspnea, or dizziness. Potassium was 3.9 and magnesium was 1.9. Cardiac echo from 12/13/21 showed "EF to 70% with grade I diastolic dysfunction. Left atrium is mildly increased, right atrium is normal. Trace mitral and tricuspid regurgitation". Patient had Imdur listed on home medications but is unsure as to why she takes it. This was discussed with the daughter on 12/13/21 who was also unsure of past cardiac history. SVT may be coronary in origin. There have no additional episodes of SVT since 12/14/21. Plan: Continue to with telemetry monitoring. Monitor electrolytes and treat deficiencies. (5) Hypothyroid Assessment/Plan: Patient has a history of hypothyroidism and is taking levothyroxine 125mg PO daily. She reports compliance and denies cold intolerance or weight changes. Upon admission Hgb 5.8. TSH today is 1.9 and unlikely the cause of anemia. Plan: Continue Levothyroxine 125mg PO daily. (6) Diabetes Assessment/Plan: Patient has a history of type II diabetes. She is currently on Metformin 500mg P O daily and Glipizide XL 5mg PO twice daily. She reports compliance with mediations. Admission glucose was 145 and A1c was 6.9 which within range according ADA 2021 T2DM Care Guidelines. Plan: Continue to hold Metformin while inpatient due to mediation interaction potential. Continue home Glipizide at lower dose of 4mg PO daily due to lower morning glucose of 95. Continue monitoring glucose AC and HS with sliding scale insulin coverage. (7) Dementia Assessment/Plan: Patient has a history of dementia according to the daughter. She has a short term memory deficient but continues to live alone in her apartment where she independently preform activities of daily living, including driving. She has plans to move to [facility] in 2 weeks. Discussed driving safety concern with daughter Stephanie on 12/13/21 who is also concerned with patient safety and is planning to discourage patient from driving. She is alert to self, situation, and location. She knows the year but can't recall the month. DMV form was completed and faxed on 12/14/21 to recommend cease driving. Plan: Continue to reorient patient as needed. Allow daughter to visit with patient during hospitalization. Continue home medications, Memantine 5mg PO nightly and Donepezil 10mg PO nightly. Recommend no longer driving to DMV (8) History of hypertension Assessment/Plan: Patient has a history of hypertension and takes Amlodipine 5mg PO daily, Lisinopril 5mg PO nightly, and Triamterene HTZ 37.5/25 po daily at home. Upon admission to the hospital she was hypotensive with systolic blood pressure 90s. Although the patient has dementia and limited short term memory, the daughter believe the patient is taking medication as prescribed because she has not had to fill them early and the patient has been taking the medication the same way for 10 years. Plan: Continue to hold hypertension medication while hypotensive. Consider resuming/ adjusting hypertension medication as blood pressure stabilizes. - Current Meds Current Meds: Current Medications Generic Name Dose Route Start Last Admin Trade Name Freq PRN Reason Stop Dose Admin Atorvastatin Calcium 20 mg 12/14/21 21:00 12/14/21 21:33 Atorvastatin 10 Mg Tablet PO 20 mg QPM ASHLEY Administration Calcium Carbonate/Glycine 500 mg 12/13/21 23:50 12/14/21 00:07 Calcium Carbonate Chew 500 Mg Tablet PO 500 mg TID PRN Administration Heartburn Donepezil HCl 10 mg 12/14/21 21:00 12/14/21 21:33 Donepezil 5 Mg Tablet PO 10 mg QPM ASHLEY Administration Ferrous Sulfate 325 mg 12/14/21 10:00 12/15/21 07:47 Ferrous Sulfate 325 Mg Tablet PO 325 mg BIDWM ASHLEY Administration Glimepiride 4 mg 12/15/21 08:00 12/15/21 07:46 Glimepiride 2 Mg Tablet PO 4 mg DAILYWM ASHLEY Administration Insulin Aspart 1 - 5 unit 12/13/21 17:00 12/15/21 07:49 Insulin Aspart 300 Unit/3 Ml Pen SUBQ 1 unit 0800,1200,1700,2100 ASHLEY Administration Protocol Levothyroxine Sodium 125 mcg 12/15/21 07:00 12/15/21 06:02 Levothyroxine 125 Mcg Tablet PO 125 mcg QDAC ASHLEY Administration Memantine 5 mg 12/14/21 21:00 12/14/21 21:32 Memantine 5 Mg Tablet PO 5 mg QPM ASHLEY Administration Pantoprazole Sodium 40 mg 12/14/21 21:00 12/14/21 21:32 Pantoprazole 40 Mg Tablet PO 40 mg BID ASHLEY Administration Polyethylene Glycol 17 gm 12/14/21 09:00 12/14/21 08:45 Polyethylene Glycol 3350 17 Gm Packet PO 17 gm DAILY ASHLEY Administration Sodium Chloride 10 ml 12/13/21 17:00 12/15/21 07:50 Sodium Chloride Flush 0.9% 10 Ml Syringe IVP 10 ml 0100,0900,1700 ASHLEY Administration - Lab Result Fish Bone Diagrams: 12/16/21 04:07 12/16/21 04:07 - Additional Planning Condition/Complexity: Improved Plan Discussed with:: Patient Subjective - Subjective Patient Reports: Feeling Better, Resting Comfortably, No Complaints (Patient is sitting up in the chair eating breakfast. She reports walking in her room without dizziness or syncope.) Nursing Reports: No Complaints Objective Vital Signs: Vital Signs - 24 hr 12/14/21 12/14/21 12/14/21 10:31 10:55 12:56 Temperature 37 C 36.8 C 36.9 C Heart Rate 86 85 Heart Rate [ 83 Brachial] Heart Rate [ Monitoring electrodes] Heart Rate [ Radial] Respiratory 18 16 16 Rate Blood Pressure 104/55 L 98/46 L Blood Pressure [Left Brachial artery] Blood Pressure [Left Radial artery] Blood Pressure 131/63 H [Right Brachial artery] O2 Saturation 97 12/14/21 12/14/21 12/14/21 13:30 13:31 15:45 Temperature 37.1 C 37.1 C 36.9 C Heart Rate 94 Heart Rate [ 81 Brachial] Heart Rate [ 69 Monitoring electrodes] Heart Rate [ Radial] Respiratory 16 16 17 Rate Blood Pressure 127/58 L Blood Pressure 107/52 L 105/59 L [Left Brachial artery] Blood Pressure [Left Radial artery] Blood Pressure [Right Brachial artery] O2 Saturation 98 98 12/14/21 12/15/21 12/15/21 20:10 00:20 06:17 Temperature 36.8 C 36.7 C 36.7 C Heart Rate Heart Rate [ 79 Brachial] Heart Rate [ Monitoring electrodes] Heart Rate [ 77 85 Radial] Respiratory 16 17 16 Rate Blood Pressure Blood Pressure 111/58 L [Left Brachial artery] Blood Pressure 101/47 L 118/64 [Left Radial artery] Blood Pressure [Right Brachial artery] O2 Saturation 97 98 97 12/15/21 07:21 Temperature 36.3 C L Heart Rate Heart Rate [ 76 Brachial] Heart Rate [ Monitoring electrodes] Heart Rate [ Radial] Respiratory 16 Rate Blood Pressure Blood Pressure 111/51 L [Left Brachial artery] Blood Pressure [Left Radial artery] Blood Pressure [Right Brachial artery] O2 Saturation 96 Oxygen O2 Source Room air I&O (Last 24 Hrs): Intake and Output Totals x24h 12/13/21 12/14/21 12/15/21 23:59 23:59 23:59 Intake Total 1135 3463.019 100 Balance 1135 3463.019 100 General: Alert, Other (Oriented to self, location, and year.) HEENT: EOMI Neuro: Alert Cardiovascular: Regular rate, Normal S1, Normal S2, No murmurs Respiratory: Chest non-tender, No respiratory distress, Breath sounds nml Abdomen: Normal bowel sounds, Soft, No tenderness Extremities: No clubbing, No cyanosis, No edema, Normal pulses Skin: No rashes - Results Results: Laboratory Results WBC 8.6 x10^3/uL (4.8-10.8) 12/15/21 04:46 RBC 3.00 10^6/uL (4.20-5.40) L 12/15/21 04:46 Hgb 7.9 g/dL (12.0-16.0) L 12/15/21 04:46 Hct 25.2 % (37.0-47.0) L 12/15/21 04:46 MCV 84.0 fL (81.0-99.0) 12/15/21 04:46 MCH 26.3 pg (27.0-31.0) L 12/15/21 04:46 MCHC 31.3 g/dL (32.0-36.0) L 12/15/21 04:46 RDW 16.3 % (12.0-15.0) H 12/15/21 04:46 Plt Count 381 10^3/uL (130-450) 12/15/21 04:46 MPV 9.5 fL (7.9-10.8) 12/15/21 04:46 Neut # (Auto) 8.5 10^3/uL (1.5-6.6) H 12/13/21 10:22 Lymph # (Auto) 1.8 10^3/uL (1.5-3.5) 12/13/21 10:22 Divide # (Auto) 0.6 10^3/uL (0.0-1.0) 12/13/21 10:22 Eos # (Auto) 0.1 10^3/uL (0.0-0.7) 12/13/21 10:22 Baso # (Auto) 0.1 10^3/uL (0.0-0.1) 12/13/21 10:22 Absolute Nucleated RBC 0.00 x10^3/uL 12/13/21 10:22 Nucleated RBC % 0.0 /100WBC 12/13/21 10:22 Sodium 137 mmol/L (135-145) 12/15/21 04:46 Potassium 3.5 mmol/L (3.5-5.0) 12/15/21 04:46 Chloride 103 mmol/L (101-111) 12/15/21 04:46 Carbon Dioxide 24 mmol/L (21-32) 12/15/21 04:46 Anion Gap 10.0 (6-13) 12/15/21 04:46 BUN 17 mg/dL (6-20) 12/15/21 04:46 Creatinine 1.1 mg/dL (0.4-1.0) H 12/15/21 04:46 Estimated GFR (MDRD) 49 (>89) L 12/15/21 04:46 Glucose 130 mg/dL (70-100) H 12/15/21 04:46 Estimat Average Glucose 151 mg/dL (70-100) H 12/14/21 04:22 Hemoglobin A1c % 6.9 % (4.27-6.07) H 12/14/21 04:22 Calcium 8.6 mg/dL (8.5-10.3) 12/15/21 04:46 Phosphorus 3.5 mg/dL (2.5-4.6) 12/14/21 04:22 Magnesium 1.9 mg/dL (1.7-2.8) 12/14/21 04:22 Iron 8 ug/dL (28-170) L 12/13/21 09:48 TIBC 427 ug/dL (250-450) 12/13/21 09:48 % Saturation 2 % (20-50) L 12/13/21 09:48 Transferrin 305 mg/dL (192-382) 12/13/21 09:48 Total Bilirubin 0.4 mg/dL (0.2-1.0) 12/13/21 09:48 AST 16 IU/L (10-42) 12/13/21 09:48 ALT 12 IU/L (10-60) 12/13/21 09:48 Alkaline Phosphatase 50 IU/L (42-121) 12/13/21 09:48 Troponin I High Sens 4.1 ng/L (2.3-14.8) 12/13/21 09:48 Total Protein 6.6 g/dL (6.7-8.2) L 12/13/21 09:48 Albumin 3.7 g/dL (3.2-5.5) 12/13/21 09:48 Globulin 2.9 g/dL (2.1-4.2) 12/13/21 09:48 Albumin/Globulin Ratio 1.3 (1.0-2.2) 12/13/21 09:48 Vitamin B12 350 pg/mL (180-914) 12/14/21 04:22 Folate 12.86 ng/mL (5.90 - >24.8) 12/14/21 04:22 TSH 1.91 uIU/mL (0.34-5.60) 12/14/21 04:22 SARS-CoV-2 (PCR) NOT DETECTED 12/13/21 12:00 Blood Type O NEGATIVE 12/13/21 10:22 Antibody Screen NEGATIVE 12/13/21 10:22 Crossmatch IS Only See Detail 12/13/21 10:22 Sepsis Event Note (H) - Evaluation Current Stage of Sepsis: Ruled out ABX Reporting Has patient been on IV antibiotics over the past 48 hours?: No
[2021-12-15] MEDS: polyethylene glycoL 3350 17 GM PACKET PO SCH (08:48)
[2021-12-15] MEDS: PANTOPRAZOLE 40 MG TABLET PO SCH ×2 (08:48→21:02)
[2021-12-15] MEDS: MEMANTINE 5 MG TABLET PO SCH (21:02)
[2021-12-15] MEDS: DONEPEZIL 5 MG TABLET PO SCH (21:02)
[2021-12-15] MEDS: ATORVASTATIN 10 MG TABLET PO SCH (21:02)
[2021-12-16] MEDS: SODIUM CHLORIDE FLUSH 0.9% 10 ML SYRINGE IVP SCH ×2 (00:24→08:08)
[2021-12-16 04:51] LABS: HCT - HEMATOCRIT 25.8 % (37.0-47.0); HGB - HEMOGLOBIN 8.1 g/dL (12.0-16.0); MEAN CORPUSCULAR HEMOGLOBIN 26.8 pg (27.0-31.0); MEAN CORPUSCULAR HGB CONC 31.4 g/dL (32.0-36.0); MEAN CORPUSCULAR VOLUME 85.4 fL (81.0-99.0); MEAN PLATELET VOLUME 9.7 fL (7.9-10.8); RED BLOOD COUNT 3.02 10^6/uL (4.20-5.40); RED CELL DISTRIBUTION WIDTH 16.6 % (12.0-15.0); WHITE BLOOD COUNT 8.6 x10^3/uL (4.8-10.8)
[2021-12-16 04:58] LABS: CALCIUM 8.6 mg/dL (8.5-10.3); CREATININE 1.1 mg/dL (0.4-1.0); POTASSIUM 3.7 mmol/L (3.5-5.0)
[2021-12-16] MEDS: LEVOTHYROXINE 125 MCG TABLET PO SCH (05:25)
[2021-12-16] MEDS: PANTOPRAZOLE 40 MG TABLET PO SCH (08:07)
[2021-12-16] MEDS: GLIMEPIRIDE 2 MG TABLET PO SCH (08:07)
[2021-12-16] MEDS: FERROUS SULFATE 325 MG TABLET PO SCH (08:08)
[2021-12-16] MEDS: INSULIN ASPART 300 UNIT/3 ML PEN SUBQ SCH ×2 (08:08→11:35)
[2021-12-16] MEDS: polyethylene glycoL 3350 17 GM PACKET PO SCH (08:08)
--- NOTE | 2021-12-16 10:32 | Discharge Plan ---
Discharge Plan Problem Reviewed?: Yes Diet: Diabetic Activity Restrictions: No Restrictions Shower Restrictions: No Driving Restrictions: Yes (You can no longer drive due to your dementia.) Weight Bearing: Full Weight No Smoking: If you smoke, Please STOP! Call for help. Disposition: 01 Home, Self Care Condition: Stable Prescriptions: Ferrous Sulfate [Feosol] 325 mg PO BIDWM #60 tablet Pantoprazole [Protonix] 40 mg PO BID #60 tablet Cyanocobalamin [Vitamin B-12] 500 mcg PO DAILY #30 tablet Instruction Topics: Anemia Health Concerns: You were hospitalized after you (nearly) passed out and were found to be severely anemic, with very low hemoglobin level, and your blood pressure was very low from dehydration. During your stay you were given 3 pints of blood and given IV fluids. It is possible that the 2 weeks of diarrhea that you experienced prior to be hospitalized, was caused by bleeding in your gastrointestinal track. We have started you on a 1 month treatment for a presumed bleeding ulcer and iron replacement and B12 therapy. Your blood pressure has improved and you are no longer requiring 3 blood pressure medications. Your blood sugar should now be controlled without Glimiperide, just use the Metformin and follow a diabetic diet. Follow the new medication list. All new medications were sent to your [facility] pharmacy in [place]. Plan of Treatment: As above. Care Goals: Improvement in symptoms and stabilization are the goals. Assessment: This sheet is provided to use as a reminder. Additional Instructions or Follow Up instructions: If you have new or worsening symptoms contact your primary care provider or go to the emergency room. Follow-up with: Elodia Dasilva ARNP [Primary Care Provider] -
--- NOTE | 2021-12-16 10:35 | DISCHARGE SUMMARY ---
<Darling Barragan - Last Filed: 12/16/21 14:17> Discharge Summary Code Status: Do Not Attempt Resuscitation Condition at Discharge: Stable Discharge Disposition: 01 Home, Self Care - ALLERGIES Allergies/Adverse Reactions: Allergies Allergy/AdvReac Type Severity Reaction Status Date / Time No Known Drug Allergies Allergy Verified 12/13/21 09:33 - MEDICATIONS Home Medications: Ambulatory Orders Medication Instructions Recorded Confirmed Levothyroxine Sodium [Levoxyl] 125 mcg PO DAILY 01/02/15 12/13/21 Rosuvastatin Calcium [Crestor] 10 mg PO QPM 01/02/15 12/14/21 Donepezil HCl [Aricept] 10 mg PO QPM 12/14/21 12/14/21 Memantine [Namenda] 5 mg PO QPM 12/14/21 12/14/21 Metformin HCl [Metformin ER 500 mg PO BID 12/14/21 12/14/21 Osmotic] Cyanocobalamin [Vitamin B-12] 500 mcg PO DAILY #30 tablet 12/16/21 Ferrous Sulfate [Feosol] 325 mg PO BIDWM #60 tablet 12/16/21 Pantoprazole [Protonix] 40 mg PO BID #60 tablet 12/16/21 - LABS Result Diagrams: 12/16/21 04:07 12/16/21 04:07 <Sherry Tate - Last Filed: 12/16/21 14:50> Discharge Summary Admit Date: 12/13/21 Discharge Date: 12/16/21 Discharging Provider: Dr. Barragan Primary Care Provider: Dr. Elodia Dasilva - DIAGNOSES Admission Diagnoses: 1. Severe anemia 2. Acute kidney injury 3. Orthostasis 4. History of hypertension 5. Hypothyroid 6. Diabetes 7. Dementia - HPI History of Present Illness: The patient is a pleasant well nourished 75 year old female with a history of hypertension, hyperlipidemia, diabetes, and hypothyroidism. She presents to the hospital ED from home after near syncope. She reports being home alone standing on the stairs and began to feel dizzy. She felt that she was going to lose her balance so sat down on the stairs. She denies losing consciences, falling, or injury. She then proceeded to call her daughter, Stephanie who called paramedics. She reports a similar episode of dizziness several years ago but denies having a medial work up. During initial work up she was found to be severely anemic with Hgb & Hct 5.8/19.5 and was orthostatic heart rate ranged 88 supine to 117 standing and blood pressure was 90s/50. Patient denies dizziness with recent activity. She reports normal bowel color, consistency, with last bowel movement 12/12/21. She denies recent abdominal pain, vomiting, or bloody/ black stools. No recent illness or infection. She denies any recent trauma. Daughter Stephanie was contacted who reported that she was with patient during near syncopal episode. She had picked her up from her apartment on the second story and as they were walking down the stairs she reported feeling dizzy and hot so she abruptly sat down. She was then lethargic with some facial twitching that continued until paramedics arrived. When she tried to stand up, she began to feel dizzy again and was orthostatic. Daughter reports patient has been complaining of increased weakness, fatigue, and dyspepsia over 2 weeks. 3 weeks prior to admission patient was having diarrhea for a 2 week period that kept her from leaving the apartment. It has resolved 1 week ago. The patient is now complaining of constipation but reported a bowel movement yesterday. She did have an esophogeal bleed in 2006 that was managed without intervention. Daughter does not recall patient complaining of chest pain recently or in the past and in unsure why she takes Isosorbide. She does not know of any cardiac conditions other than hypertension. Daughter confirmed that patient is still driving but has plans to move to [facility] in 2 weeks. Code status was discussed with the daughter and she confirmed that patient would like full resuscitation until the official Advanced Care Plan meeting about c ode status is held. - HOSPITAL COURSE Hospital Course: (1) Severe anemia Patient admitted with a severe anemia with Hgb 5.8 and Hct 19.5 along with MCV 84.4, RDW 17.5, Iron 8, TIBC 427, TSH 1.9, B12 350, and Folate 12.86. Patient had a history of GI bleed due to esophageal varices in 2006 that according to the daughter (Stephanie) was due to esophageal erosion and not alcohol consumption. Occult stool in ED was negative. The two weeks of pre-hospital diarrhea was most likely due to a recent GI bleed. She received a total of 3 units of PRBCs during this hospitalization and her Hbg improved to 8.1 on day of discharge. She was started on Ferrous 324mg PO twice daily for iron deficiency and Protonix 40mg PO twice daily for 1 month to empirically treat presumed ulcer. Recommend referral to [employer]. Consider bone marrow sample to rule out myelodysplasia if anemia cause remains undetermined after discharge. (2) Acute kidney injury She does NOT have a history of kidney disease. Her initial Creatinine was 1.8 compared to creatinine of 0.9 on 01/09/2016 and GFR was down to 28 from 62 on 01/09/2016. She received IV fluids for 2 days. Acute kidney injury is most likely due to hypovolemia. Her kidney function continued to improve with her creatinine 1.1, BUN 18, and GFR 49 at discharge. (3) Orthostasis According to the copier technician run sheet she was orthostatic with sitting blood pressure 110/53, heart rate of 102 and then standing blood pressure 89/41. This was managed by fluids, transfusions, and stopping her hypertension medications. She was able ambulate in the halls and denied dizziness. Her hypertension medications were not restarted. (4) Paroxysmal SVT (supraventricular tachycardia) The patient had a 13 beat run of paroxysmal supraventricular tachycardia. Patient was unaware of arrhythmia and denied chest pain, dyspnea, or dizziness. Potassium was 3.9 and magnesium was 1.9. Cardiac Echo from this hospitalization showed "EF to 70% with grade I diastolic dysfunction. Left atrium is mildly increased, right atrium is normal. Trace mitral and tricuspid regurgitation". Patient had Imdur listed on home medications but was unsure as to why she took it. This was discussed with the daughter who was also unsure of any past cardiac history. SVT may be coronary in origin. There were no additional episodes of SVT since 12/14/21. (5) History of hypertension Patient has a history of hypertension and took Amlodipine 5mg PO daily, Lisinopril 5mg PO nightly, and Triamterene HTZ 37.5/25 po daily at home. Upon admission to the hospital she was hypotensive with systolic blood pressure 90s and throughout her hospitalization her systolic blood pressure ranged 120-130s without any hypertension medication. Her hypertension medication were discontinued upon discharge. (6) Diabetes Patient has a history of type II diabetes and takes Metformin 500mg PO daily and Glipizide XL 5mg PO twice daily at home. Admission glucose was 145 and A1c was 6.9. Her serum glucose ranged 120-130s with sliding scale insulin. Her Metformin was continued upon discharge but her Glipizide was discontinued because of several low glucose readings. (7) Dementia Patient has a history of dementia according to the daughter. She has a short term memory deficient but continues to live alone in her apartment where she independently preform activities of daily living, including driving. She has plans to move to [facility] in 1.5 weeks. She is alert to self, situation, and location. She knows the year but can't recall the month or events leading up to hospitalization. DMV form was submitted with restriction for no further driving a motor vehicle. An Advanced Care Practice meeting was held with daughter Stephanie and a POLST form was completed requesting a DNR. (8) Hypothyroid Patient has a history of hypothyroidism and takes levothyroxine 125mg PO daily. She reports compliance and denies cold intolerance or weight changes. TSH was 1.9. The Levothyroxine 125mg PO daily was continued. - PHYSICAL EXAM AT DISCHARGE General Appearance: positive: No acute distress, Alert Eyes Bilateral: positive: Normal inspection, EOMI Respiratory: positive: Chest non-tender, No respiratory distress, Breath sounds nml Cardiovascular: positive: Regular rate & rhythm, No murmur Peripheral Pulses: positive: 2+ Abdomen: positive: Non-tender, No organomegaly, Nml bowel sounds, No distention Skin: positive: Color nml, No rash, Warm Extremities: positive: Non-tender, Full ROM, Nml appearance Neurologic/Psychiatric: positive: Other (Alert to self and place. Disoriented to year and situation.) - LABS Result Diagrams: 12/16/21 04:07 12/16/21 04:07 - SEPSIS Current Stage of Sepsis: Ruled out - FOLLOW UP Follow Up: Follow up with [facility]. - TIME SPENT Time Spent in Discharge (Minutes): 45
[2021-12-16] MEDS ORDERED: CYANOCOBALAMIN 500 MCG TABLET PO SCH (11:00)
[2021-12-16 11:07] VITALS: BP 114/57
--- NOTE | 2021-12-16 21:33 | ADVANCE CARE PLANNING NOTE ---
Advance Care Planning - Planning Encounter Date: 12/16/21 Time: 12:45 Purpose: To document in a POLST form, her Hector Verma wishes with daughter, DPOA, Stephanie Mariano, present. Parties in Attendance: I spoke to the patient, and daughter was at bedside. Decisional Capacity of the Patient: The patient has very poor decisional capacity. Her daughter is at bedside helping her make decisions, and the daughter is the DPOA and is to cosign the POLST form. - Diagnosis for Encounter (1) Dementia Summary: The patient has very poor short-term memory. During this hospitalization, a DMV form was sent to restrict any further driving a motor vehicle. The patient was informed of this at the current visit. - Encounter Subjective/Patient's Story: The patient lives alone. She mostly "putters around the house". She does not wander. She was driving to the grocery store and back and not off [facility]. She realizes that she has needed more help lately especially remembering how to take her medications properly. The daughter has bought a "hero machine" will which will dispense her medications by the push of a button. The patient also already has plans to move into long-term care at [facility] and the next 12 days. She will no longer be able to drive, medical restriction was discussed. The facility has free drivers and drop off capability. Objective/Medical Story: The patient presented with a near-syncopal episode. She was found to be markedly dehydrated, very orthostatic, many medications needed to be stopped including all 3 of her blood pressure meds, on her for 2 diabetic meds. I discussed what [facility]ECT[facility]MA entails including CPR, defibrillation and ventilation with an ET tube. We discussed the risks and benefits of all of these. The patient has decided to "let nature take its course" and wants to be a DNR and have selective treatment choices. Goals of Care: She wants to continue being active and living and realizes she needs support and is happy to be moving to a residential. The pts voiced that she "wants nature to take its course" and does want to be a DNR/DNI. The daughter confirmed and agreed with this decision. Plan: A new POLST form will be completed today; I will be the nedical signatory, along with the patient and cosigned by the DPOA, the daughter Stephanie Harvey. Additional Discussion: The original POLST form was given to the patient's daughter in order to take with her legal records to the new residential. Code Status: Do Not Attempt Resuscitation Time spent on advance care plannin min
== END 2021-12-16 13:51 | disposition home or self-care (01) | DRG 812 ==
LOC: EDUNIT# → ED 09:14 → MS2 11:52
PROVIDERS: ADMIT Internal Medicine; ATTEND Internal Medicine
PROC: 30233N1 Transfusion of Nonautologous Red Blood Cells into Peripheral Vein, Percutaneous Approach (ICD-10-PCS; principal; 2021-12-14)
DX: I95.9 Hypotension, unspecified (principal); D64.9 Anemia, unspecified; N17.9 Acute kidney failure, unspecified; Z20.822 Contact with and (suspected) exposure to COVID-19; I47.1 Supraventricular tachycardia; R00.0 Tachycardia, unspecified; K92.2 Gastrointestinal hemorrhage, unspecified; I95.1 Orthostatic hypotension; I10 Essential (primary) hypertension; F03.90 Unspecified dementia, unspecified severity, without behavioral disturbance, psychotic disturbance, mood disturbance, and anxiety; E03.9 Hypothyroidism, unspecified; E11.9 Type 2 diabetes mellitus without complications; Z79.84 Long term (current) use of oral hypoglycemic drugs; E78.5 Hyperlipidemia, unspecified; R53.1 Weakness; E61.1 Iron deficiency; R41.3 Other amnesia; E86.1 Hypovolemia; E86.0 Dehydration; Z66 Do not resuscitate
CPT/HCPCS: 36415; 80048; 80053; 82272; 82607; 82746; 83036; 83540; 83735; 84100; 84443; 84466; 84484; 85014; 85018; 85025; 85027; 86850; 86900; 86901; 86920; 87635; 93005; 93306; 97161; 99283; 99285; A9270; P9016